=== PATIENT | male | born 1950 | race Caucasian/White ===

== ENCOUNTER 2017-07-23 09:08 | Observation (INO) | payer BC, MEDICARE ==
[~2017-07-23] VITALS: Ht 175.3 cm; Wt 119.0 kg
[2017-07-23 10:07] VITALS: BP 191/75
[2017-07-23 10:17] LABS: BASOPHILS # (AUTO) 0.03 x10^3/uL (0-0.1); BASOPHILS % (AUTO) 0 % (0-1); EOSINOPHILS # (AUTO) 0.52 x10^3/uL (0-0.4); EOSINOPHILS % (AUTO) 4 % (1-7); LYMPHOCYTES # (AUTO) 3.06 x10^3/uL (1-3.4); LYMPHOCYTES % (AUTO) 24 % (22-44); MD NO; MEAN CORPUSCULAR HEMOGLOBIN 28.5 pg (27.5-34.5); MEAN CORPUSCULAR HGB CONC 33.9 g/dL (33.2-36.2); MEAN CORPUSCULAR VOLUME 84.3 fL (81-97); MEAN PLATELET VOLUME 7.7 fL (7.4-10.4); MONOCYTES # (AUTO) 0.92 x10^3/uL (0.2-0.8); MONOCYTES % (AUTO) 7 % (2-9); NEUTROPHILS # (AUTO) 8.17 x10^3/uL (1.8-6.8); NEUTROPHILS % (AUTO) 64 % (42-75); PLATELET COUNT 363 x10^3/uL (130-400); RED BLOOD COUNT 4.96 x10^6/uL (4.38-5.82)
[2017-07-23] MEDS ORDERED: CLOP75TA PO (10:22)
[2017-07-23] MEDS ORDERED: ASPI325T17 PO (10:22)
[2017-07-23] MEDS ORDERED: GLUC-165 PO (10:22)
[2017-07-23] MEDS ORDERED: HYDR25TA6 PO (10:22)
[2017-07-23] MEDS ORDERED: OXYC1TAB7 PO (10:22)
[2017-07-23] MEDS ORDERED: LOSA50TA6 PO (10:22)
[2017-07-23] MEDS ORDERED: MULTIVITAMIN PO (10:22)
[2017-07-23] MEDS ORDERED: DILT240C PO (10:22)
[2017-07-23] MEDS ORDERED: ATEN50TA41 PO (10:22)
[2017-07-23] MEDS ORDERED: POTA10TA31 PO (10:22)
[2017-07-23] MEDS ORDERED: FURO20TA3 PO (10:22)
[2017-07-23] MEDS ORDERED: TAMS-11 PO (10:22)
[2017-07-23] MEDS ORDERED: CLON0.1T PO (10:22)
[2017-07-23 10:28] LABS: ANION GAP 6 mmol/L (5-15); CALCIUM 8.7 mg/dL (8.5-10.1); CHLORIDE 107 mmol/L (98-107); CREATININE 0.93 mg/dL (0.7-1.3)
[2017-07-23] MEDS ORDERED: LIDOCAINE 2%, 20ML ONE (11:07)
[2017-07-23] MEDS ORDERED: NALOXONE 1 MG/ML, 2ML ONE (11:21)
[2017-07-23] MEDS ORDERED: FLUMAZENIL 0.1 MG/1 ML, 5ML ONE (11:21)
[2017-07-23] MEDS ORDERED: FENTANYL PF 100 MCG/2ML ONE (11:21)
[2017-07-23] MEDS ORDERED: MIDAZOLAM 1 MG/ML, 5ML ONE (11:21)
[2017-07-23] MEDS ORDERED: HEPARIN 1,000 UNITS/ML, 10ML ONE (11:21)
[2017-07-23] MEDS ORDERED: NITROGLYCERIN 5 MG/ML, 10ML ONE (11:21)
[2017-07-23] MEDS ORDERED: PROTAMINE SULFATE 10 MG/ML, 25ML ONE (11:22)
[2017-07-23] MEDS ORDERED: VISIPAQUE 270 MG/ML, 150ML BOTTLE ONE (12:00)
[2017-07-23] MEDS ORDERED: LACTATED RINGERS 1,000 ML IV SCH (14:00)
== END 2017-07-23 19:00 | disposition home or self-care (01) ==
LOC: OUT 09:08 → ORIP 14:04
PROVIDERS: ADMIT Surgery; ATTEND Surgery
DX: I74.3 Embolism and thrombosis of arteries of the lower extremities (principal); M19.90 Unspecified osteoarthritis, unspecified site; E78.5 Hyperlipidemia, unspecified; I10 Essential (primary) hypertension; I70.212 Atherosclerosis of native arteries of extremities with intermittent claudication, left leg; Z95.2 Presence of prosthetic heart valve
CPT/HCPCS: 36415; 37225; 75630; 80048; 85025; 93005; 99156; 99157; C1714; C1725; C1760; C1769; C1884; C1894; G0378; J1644; J2250; J2720; J3010; J3490; Q9966; J2310

== ENCOUNTER 2017-08-22 11:29 | Day surgery (SDC) | payer BC, MEDICARE ==
[~2017-08-22] VITALS: Ht 172.7 cm; Wt 118.0 kg
[~2017-08-22 11:29] MED LIST: ASPI325T17 PO; ATEN50TA41 PO; CLON0.1T PO; CLOP75TA PO; DILT240C PO; FURO20TA3 PO; GLUC-165 PO; HYDR25TA6 PO; LOSA50TA6 PO; MULTIVITAMIN PO; OXYC1TAB7 PO; POTA10TA31 PO; TAMS-11 PO; VISIPAQUE 270 MG/ML, 150ML BOTTLE ONE
[2017-08-22 12:00] VITALS: BP 176/71
[2017-08-22] MEDS ORDERED: D5%-0.45% NACL 1,000 ML IV SCH (12:33)
[2017-08-22 12:47] LABS: BASOPHILS # (AUTO) 0.03 x10^3/uL (0-0.1); BASOPHILS % (AUTO) 0 % (0-1); EOSINOPHILS # (AUTO) 0.43 x10^3/uL (0-0.4); EOSINOPHILS % (AUTO) 4 % (1-7); LYMPHOCYTES # (AUTO) 2.67 x10^3/uL (1-3.4); LYMPHOCYTES % (AUTO) 23 % (22-44); MD NO; MEAN CORPUSCULAR HEMOGLOBIN 27.9 pg (27.5-34.5); MEAN CORPUSCULAR HGB CONC 33.2 g/dL (33.2-36.2); MEAN CORPUSCULAR VOLUME 84.3 fL (81-97); MEAN PLATELET VOLUME 8.2 fL (7.4-10.4); MONOCYTES % (AUTO) 8 % (2-9); NEUTROPHILS # (AUTO) 7.52 x10^3/uL (1.8-6.8); NEUTROPHILS % (AUTO) 65 % (42-75); PLATELET COUNT 421 x10^3/uL (130-400); RED BLOOD COUNT 5.03 x10^6/uL (4.38-5.82); RED CELL DISTRIBUTION WIDTH 14.2 % (9.4-14.8)
[2017-08-22 13:07] LABS: ANION GAP 8 mmol/L (5-15); CHLORIDE 106 mmol/L (98-107)
[2017-08-22 13:08] LABS: CREATININE 0.96 mg/dL (0.7-1.3)
[2017-08-22] MEDS ORDERED: FENTANYL PF 100 MCG/2ML ONE ×2 (15:40)
[2017-08-22] MEDS ORDERED: NITROGLYCERIN 5 MG/ML, 10ML ONE (15:41)
[2017-08-22] MEDS ORDERED: NALOXONE 1 MG/ML, 2ML ONE (15:41)
[2017-08-22] MEDS ORDERED: FLUMAZENIL 0.1 MG/1 ML, 5ML ONE (15:41)
[2017-08-22] MEDS ORDERED: HEPARIN 1,000 UNITS/ML, 10ML ONE (15:41)
[2017-08-22] MEDS ORDERED: MIDAZOLAM 1 MG/ML, 2ML ONE (15:41)
[2017-08-22] MEDS ORDERED: PROTAMINE SULFATE 10 MG/ML, 25ML ONE (15:42)
[2017-08-22] MEDS ORDERED: LIDOCAINE 2%, 20ML ONE (15:57)
[2017-08-22] MEDS ORDERED: hydrALAzine 20 MG/ML, 1ML ONE (17:07)
[2017-08-22] MEDS ORDERED: ACETAMINOPHEN 650 MG/20.3 ML UDC PO PRN (17:30)
[2017-08-22] MEDS ORDERED: hydrALAzine 20 MG/ML, 1ML IV PRN (17:30)
[2017-08-22] MEDS ORDERED: SODIUM CHLORIDE 0.9% 1,000 ML IV SCH (18:00)
== END 2017-08-22 21:45 | disposition home or self-care (01) ==
LOC: OUT 11:29 → 4NOR 18:32 → OUT 21:45
PROVIDERS: ATTEND Surgery
DX: I70.211 Atherosclerosis of native arteries of extremities with intermittent claudication, right leg (principal); E78.5 Hyperlipidemia, unspecified; I10 Essential (primary) hypertension; E66.9 Obesity, unspecified; Z87.39 Personal history of other diseases of the musculoskeletal system and connective tissue; Z95.1 Presence of aortocoronary bypass graft; Z98.890 Other specified postprocedural states; Z87.891 Personal history of nicotine dependence
CPT/HCPCS: 36415; 37225; 75630; 80048; 85025; 99156; 99157; C1714; C1725; C1760; C1769; C1884; C1894; J0360; J1644; J2250; J3010; J3490; Q9966; J2720; J2310

== ENCOUNTER → 2018-12-29 | Outpatient (CLI) | payer MEDICARE ==
[~2018-12-29] MED LIST changes: -CLON0.1T PO; +CLON0.1T22 PO; +LOSA50TA14 PO; -LOSA50TA6 PO; -VISIPAQUE 270 MG/ML, 150ML BOTTLE ONE
== END | disposition home or self-care (01) ==
LOC: SUSANVILLE 08:00
PROVIDERS: ATTEND Internal Medicine Cardiovascular Disease
DX: I08.3 Combined rheumatic disorders of mitral, aortic and tricuspid valves (principal); I25.10 Atherosclerotic heart disease of native coronary artery without angina pectoris; Z95.1 Presence of aortocoronary bypass graft
CPT/HCPCS: 93306